=== PATIENT | male | born 1995 | race Caucasian/White ===

== ENCOUNTER 2017-03-31 11:38 | Emergency (ER) | payer OTHER ==
[~2017-03-31] VITALS: Ht 170.2 cm; Wt 59.0 kg
[~2017-03-31 11:38] MED LIST: NOHOMEMEDICATIONS
[2017-03-31 12:12] LABS: HEMATOCRIT 46.2 % (42.0-52.0); HEMOGLOBIN 16.4 gm/dL (14.0-18.0); MCH 31.8 pg (26.0-34.0); MCHC 35.4 g/dL (28.0-37.0); MCV 89.8 fL (80.0-100.0); MPV 8.3 fl. (7.2-11.1); RBC 5.15 mil/uL (4.50-6.00); RDW-CV 12.3 % (10.5-14.5); WBC 6.4 thou/uL (4.0-11.0)
[2017-03-31 12:17] LABS: CALCIUM 9.2 mg/dL (8.5-10.1); POTASSIUM 3.9 mmol/L (3.5-5.1)
[2017-03-31 12:28] LABS: ALBUMIN 3.9 g/dL (3.4-5.0); TOTAL BILIRUBIN 0.8 mg/dL (<0.1-1.0); TOTAL PROTEIN 7.7 g/dL (6.4-8.2)
[2017-03-31 12:29] LABS: ALCOHOL < 10 mg/dL (<10); SALICYLATE < 2.8 mg/dL (2.8-20.0)
[2017-03-31 12:30] LABS: ACETAMINOPHEN < 2 ug/mL (10-30)
[2017-03-31 14:46] LABS: URINE BILIRUBIN NEGATIVE (Negative); URINE BLOOD NEGATIVE (Negative); URINE CLARITY CLEAR; URINE COLOR YELLOW; URINE GLUCOSE-RANDOM NEGATIVE (Negative); URINE KETONES NEGATIVE (Negative); URINE LEUKOCYTES NEGATIVE (Negative); URINE NITRITE NEGATIVE (Negative); URINE PROTEIN NEGATIVE (Negative); URINE SPECIFIC GRAVITY 1.015 (1.005-1.030); URINE UROBILINOGEN 0.2 E.U./dl (0.2-1.0)
[2017-03-31 14:55] LABS: AMP/METHAMP POSITIVE (Negative); BARBITURATES Negative (Negative); BENZODIAZEPINES Negative (Negative); COCAINE Negative (Negative); METHADONE Negative (Negative); OPIATES Negative (Negative); PCP Negative (Negative); THC Negative (Negative)
[2017-03-31 16:39] VITALS: BP 106/61
== END 2017-03-31 16:40 | disposition home or self-care (01) ==
LOC: M.ERS 11:38
PROVIDERS: Personal Emergency Response Attendant
DX: F15.10 Other stimulant abuse, uncomplicated (principal); F41.9 Anxiety disorder, unspecified; F17.210 Nicotine dependence, cigarettes, uncomplicated

== ENCOUNTER 2021-02-01 17:54 | Emergency (ER) | payer OTHER, MEDICAID ==
[~2021-02-01] VITALS: Ht 177.8 cm; Wt 60.8 kg
[2021-02-01 17:57] VITALS: BP 142/94
[2021-02-01] MEDS ORDERED: NEURONTIN 300M300 M2 PO (18:02)
[2021-02-01] MEDS ORDERED: RISPERDAL 1 MG T1 MG PO (18:03)
== END 2021-02-01 18:31 | disposition home or self-care (01) ==
LOC: M.ERS 17:54
DX: Z59.00 Homelessness unspecified (principal); F41.9 Anxiety disorder, unspecified; Z79.899 Other long term (current) drug therapy; F17.210 Nicotine dependence, cigarettes, uncomplicated